=== PATIENT | female | born 1930 | race Caucasian/White ===

== ENCOUNTER 2018-03-01 15:19 | Inpatient (IN) | payer MEDICARE, OTHER ==
[~2018-03-01] VITALS: Ht 162.6 cm; Wt 45.4 kg
[~2018-03-01 15:19] MED LIST: ADULT LOW DOSE81 MG PO; ALPHAGAN P10 ML OP; ALPRAZOLAM 0.0.25 M1 PO; AMITRIPTYLINE H10 M1 PO; AMLODIPINE BESYL5 MG PO; BONIVA3 MG/3 ML IV; BUDESONIDE EC3 MG PO; CALCIUM 500 +1 EAC5 PO; CALCIUM-VITAMI1 EAC1 PO; CHERATUSSIN DA480 ML PO; DIOVAN 80 MG TA80 M1 PO; FERROUS SULFAT325 M1 PO; FISH OIL 1,0001 EAC8 PO; FLUCONAZOLE 10100 MG PO; HYDROCHLOROTHIA25 M1 PO; IRON240 MG PO; LEVAQUIN 500 M500 M2 PO; LEVOTHYROXINE0.05 MG PO; LOVAZA1000 MG PO; NORVASC 2.5 MG2.5 M1 PO; NORVASC10 MG; NORVASC10 MG PO; PROLIA60 MG/1 ML SQ; PROTONIX40 M2 PO; RECLAST 55 MG/100 M; TOPROL XL25 MG PO; ULTRAM 50MG TAB50 MG PO; VITAMIN D31000 UNI1 PO; XANAX 0.25 MG0.25 MG PO; ZOFRAN ODT4 MG PO
[2018-03-01 15:29] VITALS: BP 184/96
[2018-03-01 15:32] LABS: HEMATOCRIT 38.8 % (37.0-47.0); HEMOGLOBIN 13.2 gm/dL (12.0-15.0); MCH 32.2 pg (26.0-34.0); MCHC 33.9 g/dL (28.0-37.0); MCV 94.9 fL (80.0-100.0); MPV 8.7 fl. (7.2-11.1); NUCLEATED RBCS 0 /100WBC; PLATELET COUNT* 242 thou/uL (150-400); RBC 4.09 mil/uL (4.20-5.00); RDW-CV 13.4 % (10.5-14.5); WBC 10.1 thou/uL (4.0-11.0)
[2018-03-01] MEDS ORDERED: VITAMIN D1000 UNI1 PO (15:37)
[2018-03-01] MEDS ORDERED: CARISOPRODOL 3350 MG PO (15:37)
[2018-03-01 15:41] LABS: ANION GAP 7 mmol/L (7-16); APTT 21.1 Seconds (25.0-31.3); BUN 22 mg/dL (7-18); CALCIUM 9.1 mg/dL (8.5-10.1); CHLORIDE 103 mmol/L (98-107); CO2 32 mmol/L (21-32); GLUCOSE 119 mg/dL (70-99); POTASSIUM 3.6 mmol/L (3.5-5.1); PROTIME 10.4 Seconds (9.20-11.50); SODIUM 142 mmol/L (136-145)
[2018-03-01 15:51] LABS: ALBUMIN 3.2 g/dL (3.4-5.0); ALKALINE PHOSPHATASE 96 U/L (46-116); NT-PRO BRAIN NAT PEPTIDE 1039 pg/mL (<300); SGOT 31 U/L (15-37); SGPT 24 U/L (30-65); TOTAL BILIRUBIN 0.4 mg/dL (<0.1-1.0); TOTAL PROTEIN 6.9 g/dL (6.4-8.2); TROPONIN-I LEVEL <0.06 ng/mL (<0.06)
[2018-03-01 15:53] LABS: ABSOLUTE LYMPHOCYTES 0.7 thou/uL (0.8-5.3); ABSOLUTE NEUTROPHILS 8.4 thou/uL (1.6-8.1); PLATELET ESTIMATE ADEQUATE
[2018-03-01 17:05] LABS: URINE BILIRUBIN NEGATIVE (Negative); URINE BLOOD TRACE (Negative); URINE CLARITY CLEAR; URINE COLOR YELLOW; URINE GLUCOSE-RANDOM NEGATIVE (Negative); URINE KETONES NEGATIVE (Negative); URINE LEUKOCYTES-REFLEX NEGATIVE (Negative); URINE NITRITE-REFLEX NEGATIVE (Negative); URINE PROTEIN 1+ (Negative); URINE UROBILINOGEN 0.2 E.U./dl (0.2-1.0)
[2018-03-01 19:46] VITALS: BP 164/87
--- NOTE | 2018-03-02 00:47 | NUR ---
ASSUMED CARE OF PT AT 1999. PT IS ALERT AND ORIENTED. VSS. PERDEREK. PT REPORTS SEVERE PAIN IN LOWER BACK WITH MOVEMENT. PT IS RECIEVING PAIN MEDICINE FOR BACK PAIN. PT IS SLEEPING QUIETLY IN BED. RESPIRATIONS ARE EVEN AND NONLABORED. WILL CONTINUE TO MONITOR PT.
--- NOTE | 2018-03-02 06:43 | NUR ---
WHILE ENTERING PTS ROOM THIS AM TO GIVE MEDS, PT IS VERY SOMNOLENT AND HARD TO AROUSE. WHEN ASKED IF SHE IS OK SHE NODS HER HEAD YES BUT SHE IS VERY SOMNOLENT. PT RECIEVED TRAMADOL AND XANAX LAST NIGHT. SON SAYS THAT SHE IS NOT NORMALLY THIS DROWSY. DR REA NOTIFIED.
[2018-03-02 08:26] LABS: CALCIUM 8.8 mg/dL (8.5-10.1); CREATININE 0.9 mg/dL (0.6-1.3); POTASSIUM 3.8 mmol/L (3.5-5.1)
[2018-03-02 08:29] LABS: ABSOLUTE LYMPHOCYTES 0.4 thou/uL (0.8-5.3); ABSOLUTE MONOCYTES 0.9 thou/uL (0.0-1.2); ABSOLUTE NEUTROPHILS 8.3 thou/uL (1.6-8.1); BASOPHILS 0.4 %; EOSINOPHILS 0.3 %; HEMATOCRIT 37.8 % (37.0-47.0); HEMOGLOBIN 12.6 gm/dL (12.0-15.0); LYMPHOCYTES 4.4 %; MCH 32.1 pg (26.0-34.0); MCHC 33.3 g/dL (28.0-37.0); MCV 96.6 fL (80.0-100.0); MONOCYTES 9.5 %; NUCLEATED RBCS 0 /100WBC; PLATELET COUNT* 224 thou/uL (150-400); POLYS 85.4 %; RBC 3.91 mil/uL (4.20-5.00); RDW-CV 13.2 % (10.5-14.5); WBC 9.7 thou/uL (4.0-11.0)
--- NOTE | 2018-03-02 11:26 | NUR ---
Nutrition: Consult received "xx." Pt admitted with compression FX in back. Wt: 100#. Regular diet. Sleepy this morning. RD ordered Ensure Enlive with lunch for added nutrition intake. H/o DJD, HTN, osteoporosis. Albumin 3.2. Mild risk at this time.
--- NOTE | 2018-03-02 11:31 | EKG ---
[place] [address] ELECTROCARDIOGRAM REPORT Name: SABA HOWE Room: [address] ADM IN .R.#: [id number] Admission: 03/01/18 Attend Phys: Obed Salcedo MD Discharge: Date of : [birth year] Report #: [id number] THIS REPORT FOR: //name// [facility] ED Test Date: 2018-03-01 Test Time: 15:28:16 Pat Name: SABA HOWE Department: Room: [facility] Gender: F [employer] Sales Representative: [place] : [id number] Requested By: Nikunj Bernal Order Number: [id number] MD: Adolfo Lagos Measurements Intervals Mckenzie Rate: 104 P: NV: QRS: 61 QRSD: 85 T: 61 QT: 345 QTc: 454 Interpretive Statements sinus tachycarida Borderline repolarization abnormality Compared to ECG 03/17/2016 18:12:17 artifact no longer seen Electronically Signed On 03-02-2018 11:30:50 EXECUTIVE SOUS CHEF by Adolfo Lagos [email or web address] <ELECTRONICALLY SIGNED> By: Adolfo Lagos MD, [facility] 03/02/18 1130 1528 1528 Adolfo Lagos MD, [facility] /EPI
[2018-03-02 11:43] VITALS: BP 129/62
--- NOTE | 2018-03-02 13:30 | NUR ---
SPOKE WITH PT.AND SON,VICENTE AT BEDSIDE. PT.DROWSY BUT COULD ANSWER SOME QUESTIONS. SON VICENTE LIVES WITH PT.AND . PT.USES A WALKER. VICENTE DOES THE COOKING AND HOUSE WORK. HE DRIVES SHE AND TO APPTS. PT.SUDDENLY BECAME VERY WEAK AT HOME WITH INABILITY TO WALK. SON,AWARE PT.HAS COMPRESSION FX AND TO HAVE PROCEDURE. HE IS HOPING HE CAN TAKE HER HOME AT DISCHARGE.
[2018-03-02 17:03] VITALS: BP 140/77
--- NOTE | 2018-03-02 18:07 | NUR ---
TRANSFER FROM TELEMETRY, ON UNIT AT 0950. PATIENT A&OX4, FORGETFUL. SON AT BEDSIDE. 2.5L O2 VIA NC, IV LEFT FOREARM FLUIDS INFUSSING. BEDREST. C/O SEVERE BACK PAIN, RELIEF WITH MEDICATION. Q2 TURN. INCONTINENT AT TIMES OF B&B. KYPHOPLASTY TO BE DONE TOMORROW. NO OTHER CONCERNS AT THIS TIME. APPROPRIATE AND COOPORATIVE WITH CARE.
[2018-03-02 19:45] VITALS: BP 141/66
--- NOTE | 2018-03-03 05:45 | NUR ---
PT SLEPT MOST OF SHIFT. ASSESSMENT DOCUMENTED. MEDS GIVEN PER E-MAY. IV PATENT, FLUIDS INFUSING. PAIN MEDS GIVEN PER E-MAY. PT REFUSED PAIN MEDICATION FOR MOST OF SHIFT. PT INCONTINENT THROUGH NIGHT. PT TAKEN OFF OF O2 FOR MOST OF NIGHT O2 SAT WAS 96% ON ROOM AIR, PT O2 REPLACED THIS AM DUE TO O2 SAT DROPPING TO 82%. SON REMAINED AT BEDSIDE. WILL CONTINUE WITH PLAN OF CARE.
[2018-03-03 07:55] VITALS: BP 144/72
[2018-03-03 16:34] VITALS: BP 144/86
--- NOTE | 2018-03-03 16:53 | NUR ---
PATIENT A&OX4, FORGETFUL. 3L O2 VIA NC, IV LEFT FOREARM SALINE LOCK. BEDREST, UP WITH ASSIST, REFUSING TO GET UP DUE TO PAIN IN BACK. KYPHOPLASTY TODAY, SITE IS COVERED C/D/I. C/O PIAN, RELIEF WITH MEDICATION. INCONTINENT OF BOWEL AND BLADDER. Q2 TURN. SON AT BEDSIDE. NO OTHER CONCERNS AT THIS TIME. APPROPRIATE AND COOPORATIVE WITH CARE. WILL CONTINUE TO MONITOR.
[2018-03-03 19:20] VITALS: BP 136/69
[2018-03-04] VITALS (7 sets, daily range): BP systolic 128–182; BP diastolic 62–116
--- NOTE | 2018-03-04 06:12 | NUR ---
PT SLEEPING DURING START OF SHIFT THEN AWAKE BEFORE MIDNIGHT. PT CONFUSED AND DISORIENTED AT THAT TIME. PT CONTINUES TO BE INCONTINENT OF URINE. PT CLENED AND CHANGED BY STAFF AND TURNED Q 2 HRS. PT'S SON AT BEDSIDE DURING NIGHT TO NOTIFY STAFF OF PTS NEEDS. VITAL SIGNS HEART RATE AND BLOOD PRESSURE WITHIN NORMAL LIMITS. O2 SAT > 94% ON O2 AT 2 LITERS. NO PAIN OR DISCOMFORT DURING SHIFT. PT SLEEPING WITH OU CLOSED SINCE 0030, AROUSES TO TOUCH AND VOICE, FOLLOWS COMMANDS. NO FURTHER RESTLESSNESS. WILL CONTINUE TO MONITOR.
--- NOTE | 2018-03-04 11:03 | NUR ---
[employer] LETTER CARRIER SPOKE TO THE PATIENT AND HER SON TO DISCUSS DISCHRGE PLANNING NEEDS AND SNF PLACEMENT AT D/C. PATIENT'S SON REQUEST A REFERRAL BE SENT TO [facility]. D/C TRAFFIC DIVISION COMMANDING OFFICER SPOKE TO [employer] WITH [employer] TO INFORM OF THE REFERRAL AND FAXED THE PATIENT'S FACESHEET AND CLINICAL INFO. DR ROWELL INFORMS THAT THE PLAN IS TO DISCHARGE THE PATIENT TOMORROW. CM WILL REMAIN AVAILABLE TO ASSIST AND FOLLOW NEEDED.
--- NOTE | 2018-03-04 19:40 | NUR ---
PATIENT HAS BEEN A/O X 3, FORGETFUL AT TIMES. PATIENT HAD EPISODE OF CONFUSION THIS AFTERNOON WHEN FAMILY WAS NOT IN ROOM, REORIENTED PATIENT. PATIENT TITRATED TO RA. UP WITH GAITBELT AND WALKER. WORKED WITH PHYSICAL AND OCCUPATIONAL THERAPY THIS SHIFT. UP TO CHAIR FOR PART OF SHIFT. TURNED WHEN IN BED. INCONTINENT OF URINE THIS SHIFT, JERRY-CARE COMPLETED. FAMILY AT BEDSIDE THROUGHOUT THE SHIFT. VOICING CONCERNS OF PATIENT BEING DISCHARGED TO SNF, WOULD LIKE TO SPEAK WITH CASE MANAGMENT REGARDING DC PLANS. DR CROBIN INFORMED OF INCREASED CONFUSION THIS AFTERNOON, NO NEW ORDERS. LIDOCAINE PATCH PLACED TO BACK, HAS NOT USED ANY TRAMADOL THIS SHIFT. SALINE LOCK PATENT. POSSIBLE DC ON WEDNESDAY. FALL PRECAUTIONS IN PLACE. HOURLY ROUNDING COMPLETED. CALL LIGHT WITHIN REACH. WILL CONTINUE WITH PLAN OF CARE.
--- NOTE | 2018-03-05 06:26 | NUR ---
PATIENT SLEPT PART OF THE NIGHT. PATIENT HAS BEEN TURNED AND CHANGED ABOUT EVERY TWO HOURS. PATIENT ACCIDENTALLY PULLED OUT IV. IV LEFT OUT PATIENT IS NOT GETTING ANY IV MEDICATIONS. PATIENT STILL CONFUSED AND FORGETFUL AT TIMES. PATIENT IS POSSIBLY LEAVING TODAY EITHER SKILLED OR HOME. WILL CONTINUE TO MONITOR.
[2018-03-05 07:45] VITALS: BP 154/82
[2018-03-05 11:09] VITALS: BP 154/82
--- NOTE | 2018-03-05 11:12 | NUR ---
ORDERS NOTED FOR DC HOME WITH HH. MET WITH PT'S SON/VICENTE. HE STATED HE TOURED [facility] AND NOW FEELS THEY CAN MANAGE PT AT HOME. DOESN'T WANT SNF. DID EXPLAIN THAT IF PT FAILS AT HOME AND NEEDS SNF, HH CAN ASSIST [facility] PLACEMENT AND THAT THERE ARE MANY OPTIONS FOR SNF. DISCUSSED HH OPTIONS, HE CHOSE [facility]. CALLED AND FAXED REFERRAL TO [facility], ASKED THAT PT BE SEEN TOMORROW, SHE STATED THEY WOULD. PT HAS WALKER AND TRANSPORT CHAIR AT HOME AND VICENTE STATED SOMEONE WOULD BE WITH HER AT ALL TIMES
[2018-03-05 12:35] VITALS: BP 154/82
--- NOTE | 2018-03-05 15:31 | NUR ---
PATIENT A&OX3, FORGETFUL. ROOM AIR, NO IV ACCESS. UP WITH ASSISTX1 WITH GIATBELT. C/O BACK PAIN, RELIEF WITH REPOSSITION. CONCERNED WITH BOWEL MOVEMENTS, NON IN 6 DAYS. COLACE GIVEN, SMALL FORMED BM X 7. BAREER CREAM APPLIED TO BOTTOM. PATIENT DISCHARGED HOME WITH HOME HEALTH. REVIEWED DISCHARGE PAPERWORK WITH PATIENT WHILE SON (CENTRAL OFFICE INSPECTOR) AT BEDSIDE. VERBALIZES UNDERSTANDING, NO FURTHER QUESTIONS AT THIS TIME. PATIENT LEFT UNIT AT 1525 VIA W/C, ALL BELONGINGS TAKEN WITH PATIENT. APPROPRIATE AND COOPORATIVE WITH CARE.
== END 2018-03-05 15:25 | disposition home health service (06) | DRG 515 ==
LOC: M.ERS 15:19 → M.TBA-ER 18:08 → M.3W 18:08 → M.2W 19:16 → M.3W 03-02 08:51
PROVIDERS: Family Medicine; ADMIT Internal Medicine
PROC: BR19YZZ Fluoroscopy of Lumbar Spine using Other Contrast (ICD-10-PCS; principal; 2018-03-03)
PROC: 0QS03ZZ Reposition Lumbar Vertebra, Percutaneous Approach (ICD-10-PCS; principal; 2018-03-03)
PROC: 0QU03JZ Supplement Lumbar Vertebra with Synthetic Substitute, Percutaneous Approach (ICD-10-PCS; principal; 2018-03-03)
DX: M80.08XA Age-related osteoporosis with current pathological fracture, vertebra(e), initial encounter for fracture (principal); G92 Toxic encephalopathy; M19.90 Unspecified osteoarthritis, unspecified site; I10 Essential (primary) hypertension; H40.9 Unspecified glaucoma; Z90.49 Acquired absence of other specified parts of digestive tract; Z90.710 Acquired absence of both cervix and uterus; Z88.2 Allergy status to sulfonamides; Z88.8 Allergy status to other drugs, medicaments and biological substances; Z91.041 Radiographic dye allergy status; Z82.49 Family history of ischemic heart disease and other diseases of the circulatory system; Z79.82 Long term (current) use of aspirin; Z79.899 Other long term (current) drug therapy